=== PATIENT | male | born 1935 | race Caucasian/White ===

== ENCOUNTER → 2017-05-13 | Outpatient (CLI) | payer MEDICARE ==
--- NOTE | 2017-05-13 16:09 | PCVCIMAG ---
APPROVED REPORT Study performed: 05/13/2017 12:55:05 EXAM: Comprehensive 2D, Doppler, and color-flow Echocardiogram Patient Location: Echo lab Status: routine BSA: 1.91 HR: 87 bpmBP: 112/64 mmHg Rhythm: NSR Other Information Study Quality: Adequate Risk Factors: Cardiac Risk Factors: HTN, Hyperlipidemia Indications Aortic Stenosis 2D Dimensions LVEF(%): 60.29 (>50%) IVSd: 13.15 (7-11mm)LVOT Diam: 20.94 (18-24mm) LVDd: 37.83 mm PWd: 12.01 (7-11mm) LVDs: 25.88 (25-40mm) Left Atrium: 37.67 (27-40mm) Aortic Root: 33.97 mm LV Single Plane 4CH: 65.63 % LV Single Plane 2CH: 60.92 %Bey's LVEF: 63.28 % Biplane EF: 63.4 % Volumes Left Atrial Volume (Systole) Single Plane 4CH: 60.55 mLSingle Plane 2CH: 61.31 mL LA ESV Index: 33.00 mL/m2 Aortic Valve AoV Peak Rober.: 3.70 m/s AO Peak Gr.: 54.68 mmHgLVOT Max P.98 mmHg AO Mean Gr.: 30.65 mmHgLVOT Mean P.50 mmHg AO V2 Mean: 2.64 m/sLVOT Max V: 1.12 m/s AO V2 VTI: 78.60 cmLVOT Mean V: 0.72 m/s GAIL (VTI): 0.99 [id number] V1 VTI: 22.61 cm GAIL Vmax: 1.04 cm2 AI Vmax: 4.48 m/sSV (LVOT): 77.80 mL AI Ritchie: 2.86 m/s2 AI PHT: 454.22 ms Mitral Valve E/A Ratio: 0.6 MV Decel. Time: 313.67 ms MV E Max Rober.: 0.62 m/s MV A Rober.: 0.97 m/s IVRT: 107.27 ms Pulmonary Vein P Vein S: 0.26 m/sP Vein A: 0.42 m/s P Vein D: 0.36 m/sP Vein A Dur.: 128.0 msec P Vein S/D Ratio: 0.72 Left Ventricle The left ventricle is normal size. There is normal LV segmental wall motion. Mild concentric left ventricular hypertrophy. Left ventricular systolic function is normal. The left ventricular ejection fraction is within the normal range. LVEF is 55%. Grade I - abnormal relaxation pattern. Right Ventricle The right ventricle is normal size. The right ventricular systolic function is normal. Atria The left atrium size is normal. The right atrium size is normal. Aortic Valve Moderate-Severe aortic valve calcification. Mild aortic regurgitation. There is moderate valvular aortic stenosis. Calculated aortic valve area is 1 cm2 with maximum pressure gradient of 55 mmHg and mean pressure gradient of 31 mmHg. Mitral Valve The mitral valve is normal in structure. There is no mitral valve regurgitation noted. No evidence of mitral valve stenosis. Tricuspid Valve The tricuspid valve is normal in structure. There is no tricuspid valve regurgitation noted. Pulmonic Valve The pulmonary valve is normal in structure. There is no pulmonic valvular regurgitation. Great Vessels The aortic root is normal in size. IVC is normal in size and collapses with >50% inspiration Pericardium There is no pericardial effusion. <Conclusion> Left ventricular systolic function is normal. The left ventricular ejection fraction is within the normal range. LVEF is 55%. Grade I - abnormal relaxation pattern. The right ventricle is normal size. The left atrium size is normal. Moderate-Severe aortic valve calcification. There is moderate valvular aortic stenosis. Calculated aortic valve area is 1 cm2 with maximum pressure gradient of 55 mmHg and mean pressure gradient of 31 mmHg. There is moderate valvular aortic stenosis. Calculated aortic valve area is 1 cm2 with maximum pressure gradient of 55 mmHg and mean pressure gradient of 31 mmHg. There is no mitral valve regurgitation noted. No evidence of mitral valve stenosis. There is no tricuspid valve regurgitation noted. There is no pericardial effusion.
== END | disposition home or self-care (01) ==
LOC: PCVCIMAG 12:42
PROVIDERS: ATTEND Internal Medicine Cardiovascular Disease
DX: I35.2 Nonrheumatic aortic (valve) stenosis with insufficiency (principal); I45.10 Unspecified right bundle-branch block; I10 Essential (primary) hypertension; I48.0 Paroxysmal atrial fibrillation; E78.00 Pure hypercholesterolemia, unspecified; C85.90 Non-Hodgkin lymphoma, unspecified, unspecified site; Z87.891 Personal history of nicotine dependence; Z79.82 Long term (current) use of aspirin
CPT/HCPCS: 93005; 93306; G0463

== ENCOUNTER → 2018-03-31 | Outpatient (CLI) | payer MEDICARE | END | disposition home or self-care (01) | LOC: PCVCCLINIC 14:59 | DX: I35.0 Nonrheumatic aortic (valve) stenosis (principal); I10 Essential (primary) hypertension; E78.00 Pure hypercholesterolemia, unspecified; I45.10 Unspecified right bundle-branch block | CPT/HCPCS: 80061; 93005; G0463 ==

== ENCOUNTER → 2018-11-04 | Outpatient (CLI) | payer MEDICARE ==
--- NOTE | 2018-11-04 12:47 | PCVCIMAG ---
APPROVED REPORT Study performed: 11/04/2018 10:09:55 EXAM: Comprehensive 2D, Doppler, and color-flow Echocardiogram Patient Location: Echo lab Status: routine BSA: 1.91 HR: 96 bpmBP: 122/70 mmHg Rhythm: NSR Other Information Study Quality: Technically Difficult Risk Factors: Cardiac Risk Factors: HTN, Hyperlipidemia 2D Dimensions IVSd: 15.20 (7-11mm)LVOT Diam: 22.13 (18-24mm) LVDd: 35.90 mm PWd: 14.13 (7-11mm)Ascending Ao: 31.79 (22-36mm) LVDs: 30.96 (25-40mm) Left Atrium: 36.20 (27-40mm) Aortic Root: 26.81 mm LV Single Plane 4CH: 65.53 % Volumes Left Atrial Volume (Systole) Single Plane 4CH: 27.27 mLSingle Plane 2CH: 46.29 mL LA ESV Index: 19.00 mL/m2 Aortic Valve AoV Peak Rober.: 3.65 m/s AO Peak Gr.: 53.43 mmHgLVOT Max P.36 mmHg AO Mean Gr.: 35.32 mmHgLVOT Mean P.12 mmHg AO V2 Mean: 2.91 m/sLVOT Max V: 1.04 m/s AO V2 VTI: 72.78 cmLVOT Mean V: 0.85 m/s GAIL (VTI): 1.03 [id number] V1 VTI: 19.46 cm GAIL Vmax: 1.10 cm2 SV (LVOT): 74.82 mL Mitral Valve E/A Ratio: 0.5 MV Decel. Time: 195.16 ms MV E Max Rober.: 0.63 m/s MV A Rober.: 1.24 m/s TDI E/Lateral E': 6.30E/Medial E': 10.50 Medial E' Rober.: 0.06 m/s Lateral E' Rober.: 0.10 m/s Pulmonary Valve PV Peak Gr.: 3.09 mmHg Left Ventricle The left ventricle is normal size. There is normal LV segmental wall motion. Mild concentric left ventricular hypertrophy. Left ventricular systolic function is normal. The left ventricular ejection fraction is within the normal range. LVEF is 60%. Grade I - abnormal relaxation pattern. Right Ventricle The right ventricle is normal size. The right ventricular systolic function is normal. Atria The left atrium size is normal. The right atrium size is normal. Aortic Valve Aortic valve leaflets are moderately thickened. No aortic regurgitation is present. Peak gradient is 54mmHg. Mean gradient is 36mmHg. Calculated aortic valve area is 1.1cm2. Mitral Valve The mitral valve is normal in structure. There is no mitral valve regurgitation noted. No evidence of mitral valve stenosis. Tricuspid Valve The tricuspid valve is normal in structure. There is no tricuspid valve regurgitation noted. Pulmonic Valve The pulmonary valve is normal in structure. There is no pulmonic valvular regurgitation. Great Vessels The aortic root is normal in size. IVC is normal in size and collapses >50% with inspiration. Pericardium There is no pericardial effusion. <Conclusion> The left ventricle is normal size. LVEF is 60%. Grade I - abnormal relaxation pattern. The right ventricle is normal size. The left atrium size is normal. Aortic valve leaflets are moderately thickened. Peak gradient is 54mmHg. Mean gradient is 36mmHg. Calculated aortic valve area is 1.1cm2. There is no mitral valve regurgitation noted. There is no tricuspid valve regurgitation noted. The aortic root is normal in size. There is no pericardial effusion.
== END | disposition home or self-care (01) ==
LOC: PCVCIMAG 12:49
PROVIDERS: ATTEND Internal Medicine Cardiovascular Disease
DX: I11.9 Hypertensive heart disease without heart failure (principal); I35.0 Nonrheumatic aortic (valve) stenosis; E78.00 Pure hypercholesterolemia, unspecified; I45.10 Unspecified right bundle-branch block; I48.92 Unspecified atrial flutter; I35.9 Nonrheumatic aortic valve disorder, unspecified; E78.2 Mixed hyperlipidemia; R00.0 Tachycardia, unspecified; Z79.899 Other long term (current) drug therapy; Z87.891 Personal history of nicotine dependence
CPT/HCPCS: 36415; 80061; 93005; 93306; G0463

== ENCOUNTER → 2019-07-20 | Outpatient (CLI) | payer MEDICARE | END | disposition home or self-care (01) | LOC: PCVCCLINIC 15:26 | PROVIDERS: ATTEND Internal Medicine Cardiovascular Disease | DX: I35.0 Nonrheumatic aortic (valve) stenosis (principal); E78.00 Pure hypercholesterolemia, unspecified; F03.91 Unspecified dementia, unspecified severity, with behavioral disturbance; R00.0 Tachycardia, unspecified; I10 Essential (primary) hypertension; R94.31 Abnormal electrocardiogram [ECG] [EKG]; I45.10 Unspecified right bundle-branch block; Z87.891 Personal history of nicotine dependence; Z79.899 Other long term (current) drug therapy | CPT/HCPCS: 36415; 80061; 93005; G0463 ==